=== PATIENT | male | born 1975 | race Caucasian/White ===

== ENCOUNTER 2019-06-06 20:30 | Emergency (ER) | payer MEDICAID ==
[2019-06-06] MEDS ORDERED: LIDOCAINE 1%/EPINEPHRINE INJ 20 ML VIAL INJ ONE (23:36)
[2019-06-06] MEDS ORDERED: SULFAMETHOXAZOLE/TRIMETHOPRIM 800-160 MG TABLET PO ONE (23:37)
[2019-06-06] MEDS ORDERED: CEPHALEXIN 500 MG CAPSULE PO ONE (23:37)
--- NOTE | 2019-06-06 23:39 | ER Document Report ---
ED General - General Chief Complaint: Abscess Stated Complaint: CYST ON BACK Time Seen by Provider: 06/06/19 23:34 TRAVEL OUTSIDE OF THE [place] IN LAST 30 DAYS: No - HPI Notes: 44-year-old male with a history of recurrent abscesses, denies any IVDA history, presents with right flank abscess. States it started draining a day ago, describes 2 to 3 days of increasing pain swelling and redness. Moderate in tensity, gradual onset, nonradiating. Throbbing and burning. No other modifying factors, no other associated symptoms, no other provocative or palliative factors. Past Medical History - Social History Smoking Status: Current Every Day Smoker Drug Abuse: None Family History: Reviewed & Not Pertinent - Medical History Medical History: Other - Recurrent abscesses Review of Systems - Review of Systems Notes: Review of systems as in the history of present illness, otherwise negative x 10 systems. Physical Exam - Vital signs Vitals: Temp Pulse Resp BP Pulse Ox 98.9 F 97 18 127/80 H 97 06/06/19 20:40 06/06/19 20:40 06/06/19 20:40 06/06/19 20:40 06/06/19 20:40 - Notes Notes: General: Well devloped, no acute distress. HEENT: Normocephalic, atraumatic. Pupils equal round reactive to light. Mucosa moist. No JVD. Chest: No trauma, normal excursion. Respiratory: Good air exchange, normal excursion. Cardiac: Regular rhythm Abdomen: Soft, benign. Nondistended. Back: No asymmetry or gross abnormality. Motor: Grossly normal power and tone. Neurologic: Alert, nonfocal. Vascular: Well perfused Skin: No petechiae or purpura Flank: There is approximately 5 x 5 cm area of induration with a central area of skin breakdown on the right flank near just superior to and posterior to the posterior iliac crest Course - Re-evaluation Re-evalutation: 06/06/19 23:41 -appearing nontoxic male with cutaneous abscess versus cellulitis and induration. Strong suspicion for abscess we will proceed empirically with incision and drainage. Given his associated erythema and cellulitis will treat with Keflex and Bactrim given his recurrent abscess history. 06/07/19 00:34 Abscess is incised and drained as described below, 4 cm incision made. Packed as described - Vital Signs Vital signs: Temp Pulse Resp BP Pulse Ox 98.9 F 97 18 127/80 H 97 06/06/19 20:40 06/06/19 20:40 06/06/19 20:40 06/06/19 20:40 06/06/19 20:40 Procedures - Incision and Drainage Right Back Type: Simple Anesthetic type: 1% Lidocaine Blade size: 11 I&D procedure: Chlorprep applied Incision Method: Incision made by scalpel Amount/type of drainage: Moderate amount of purulent drainage moderate amount of purulent drainage, Notes: 06/07/19 00:31 Wound is probed and packed without difficulty. Discharge - Discharge Clinical Impression: Abscess Condition: Stable Disposition: HOME, SELF-CARE Instructions: Abscess ([facility]) Additional Instructions: Remove packing in 3 to 4 days. Return immediately for any worsening Prescriptions: Cephalexin Monohydrate [Keflex 500 mg Capsule] 500 mg PO Q6H 7 Days #28 capsule Sulfamethoxazole/Trimethoprim [Bactrim Ds Tablet] 1 each PO Q12 7 Days #14 tablet Referrals: MICHELE ST MD [ACTIVE STAFF] - Follow up as needed
[2019-06-07 00:56] VITALS: BP 127/75
== END 2019-06-07 00:56 | disposition home or self-care (01) ==
LOC: ER 20:30
DX: L02.212 Cutaneous abscess of back [any part, except buttock and flank] (principal); F17.200 Nicotine dependence, unspecified, uncomplicated
CPT/HCPCS: 99283

== ENCOUNTER 2019-07-31 17:41 | Emergency (ER) | payer SELFPAY ==
--- NOTE | 2019-07-31 19:58 | RADIOLOGY REPORT (SQ) ---
EXAM DESCRIPTION: U/S EXTREMITY NONVASCULAR LTD COMPLETED DATE/TIME: 07/31/2019 7:33 pm REASON FOR STUDY: eval for abscess L knee Red, swollen and lump on the left knee x3 days. COMPARISON: None. TECHNIQUE: Dynamic and static grayscale images acquired of the localized site of clinical concern an d recorded on PACS. Additional selected color Doppler images recorded. SITE OF CONCERN: Area of swelling at the left knee. LIMITATIONS: None. FINDINGS: Ultrasound scanning of the area of concern at the left knee demonstrates diffuse soft tiss ue edema. No organized fluid collection was identified to suggest abscess formation. IMPRESSION: Soft tissue edema at the patient's area of concern at the left knee with no sonographic evidence for abscess formation. If clinical concern persists, contrast-enhanced CT or MRI can be obt ained for further evaluation. TECHNICAL DOCUMENTATION: JOB ID: [id number] [employer]- All Rights Reserved Reading location - IP/workstation name: [email or web address]
[2019-07-31 20:36] VITALS: BP 111/68
[2019-07-31] MEDS ORDERED: CEPHALEXIN 500 MG CAPSULE PO ONE (20:39)
[2019-07-31] MEDS ORDERED: DOXYCYCLINE HYCLATE 100 MG TABLET PO ONE (20:39)
--- NOTE | 2019-07-31 20:45 | ER Document Report ---
HPI - HPI Time Seen by Provider: 07/31/19 18:39 Pain Level: 5 Notes: Patient is a 44-year-old male presenting to the emergency department with concern for an abscess near his left knee. He states this started approximately 2 days ago as a small pimple and has now increased. He does report he has had abscesses in the past. He denies any fevers. He denies any history of MRSA. - CONSTITUTIONAL Constitutional: DENIES: Chills Past Medical History - General Information source: Patient - Social History Smoking Status: Current Every Day Smoker Chew tobacco use (# tins/day): No Frequency of alcohol use: None Drug Abuse: None Family History: Reviewed & Not Pertinent Patient has suicidal ideation: No Patient has homicidal ideation: No Pulmonary Medical History: Reports: Hx Asthma Renal/ Medical History: Denies: Hx Peritoneal Dialysis Past Surgical History: Reports: Hx Kidney (Renal Surgery) - stones Vertical Provider Document - CONSTITUTIONAL Notes: PHYSICAL EXAMINATION: GENERAL: Well-appearing, well-nourished and in no acute distress. HEAD: Atraumatic, normocephalic. EYES: Pupils equal round extraocular movements intact, conjunctiva are normal. ENT: Nares patent NECK: Normal range of motion LUNGS: No respiratory distress Musculoskeletal: Normal range of motion NEUROLOGICAL: Normal speech, normal gait. PSYCH: Normal mood, normal affect. SKIN: Area of erythema with induration noted over the left knee just superior to the kneecap. There is no area of fluctuance. There is a scabbed over area that appears as if it had been draining. - INFECTION CONTROL TRAVEL OUTSIDE OF THE [place] IN LAST 30 DAYS: No Course - Re-evaluation Re-evalutation: Knee x-ray is negative for any acute findings. There is no obvious fluid collection or area of fluctuance. ID roofed one area and did get a very small amount of drainage enough to obtain a culture. Patient will be started on appropriate antibiotics, he was encouraged to do warm soaks with Epsom salt. This may likely develop into a abscess that needs drainage, he was counseled on this and the need for return if symptoms worsen. - Vital Signs Vital signs: Temp Pulse Resp BP Pulse Ox 98.2 F 86 13 111/68 97 07/31/19 20:33 07/31/19 20:33 07/31/19 20:33 07/31/19 20:33 07/31/19 20:33 Discharge - Discharge Clinical Impression: Cellulitis Qualifiers: Site of cellulitis: unspecified site Qualified Code(s): L03.90 - Cellulitis, unspecified Condition: Stable Disposition: HOME, SELF-CARE Additional Instructions: Cellulitis You have an infection of your skin and underlying soft tissues called cellulitis. This is due to bacteria, which can enter through any break in the skin, or even through an irritated hair follicle. Untreated, cellulitis will usually worsen. Antibiotics are required. Usually, warm packs or warm soaks, and elevation of the infected area are recommended. You should start getting better within 24 to 36 hours. Most infections respond quickly to the right medication. Follow-up care is important, however, to check for abscess (boil) formation, unsuspected foreign body, or resistant infection. If you develop fever, chills, or if the area of infection is becoming rapidly more swollen or painful, call the doctor at once. Please take antibiotics exactly as prescribed, finish the entire course even if your symptoms resolve. I would like you to try to soak the area at least 4 times daily in warm water or warm packs. It would be especially helpful if you would put some Epsom salts in the water. Follow-up with your primary care provider in 2 days for wound recheck. If you are unable to follow-up with your primary care please return to the emergency department for wound recheck. Prescriptions: Cephalexin [Cephalexin 500 MG Tablet] 1 tab PO QID #28 tablet Doxycycline Hyclate 100 mg PO BID #14 capsule
== END 2019-07-31 21:07 | disposition home or self-care (01) ==
LOC: ER 17:41
DX: L03.90 Cellulitis, unspecified (principal); F17.200 Nicotine dependence, unspecified, uncomplicated
CPT/HCPCS: 76882; 87070; 87077; 87186; 87205; 99283

== ENCOUNTER 2019-08-02 17:57 | Emergency (ER) | payer SELFPAY ==
--- NOTE | 2019-08-02 19:04 | ER Document Report ---
ED Medical Screen (RME) - General Chief Complaint: Abscess Stated Complaint: FOLLOW UP, LEFT LEG SWELLING Time Seen by Provider: 08/02/19 18:56 Notes: Patient is a 44-year-old male who presents the emergency department with a chief complaint of left knee pain and redness. He was seen here in the emergency department and was sent home with Keflex and doxycycline. He states that the redness is still there and has not gone any better. He is able to drain some purulent fluid. Denies any fevers or body aches. States that it is harder to walk. Exam: Edema and erythema noted to left knee. 3 areas of purulent drainage. I have greeted and performed a rapid initial assessment of this patient. A comprehensive ED assessment and evaluation of the patient, analysis of test results and completion of medical decision making process will be conducted by an additional ED providers. TRAVEL OUTSIDE OF THE [place] IN LAST 30 DAYS: No - Related Data Allergies/Adverse Reactions: Sulfa (Sulfonamide Antibiotics) Allergy (Verified 08/02/19 18:45) morphine Adverse Reaction (Verified 08/02/19 18:45) Hyperactivity Past Medical History - Social History Chew tobacco use (# tins/day): No Frequency of alcohol use: None Drug Abuse: None Pulmonary Medical History: Reports: Hx Asthma Renal/ Medical History: Denies: Hx Peritoneal Dialysis Past Surgical History: Reports: Hx Kidney (Renal Surgery) - stones Physical Exam - Vital signs Vitals: Temp Pulse BP Pulse Ox 97.8 F 86 130/73 H 97 08/02/19 18:03 08/02/19 18:03 08/02/19 18:03 08/02/19 18:03 Course - Vital Signs Vital signs: Temp Pulse Resp BP Pulse Ox 97.8 F 86 130/73 H 97 08/02/19 18:03 08/02/19 18:03 08/02/19 18:03 08/02/19 18:03
[2019-08-02 19:41] LABS: ABSOLUTE BASOPHILS # (AUTO) 0.1 10^3/uL (0.0-0.2); ABSOLUTE EOSINOPHILS # (AUTO) 0.5 10^3/uL (0.0-0.6); ABSOLUTE LYMPHOCYTES (AUTO) 2.6 10^3/uL (0.5-4.7); ABSOLUTE MONOCYTES (AUTO) 1.3 10^3/uL (0.1-1.4); ABSOLUTE NEUT (AUTO) 5.7 10^3/uL (1.7-8.2); BASOPHILS % (AUTO) 1.2 % (0-2); EOSINOPHILS % (AUTO) 4.5 % (0-6); HEMATOCRIT 43.4 % (37.9-51.0); HEMOGLOBIN 14.7 g/dL (13.5-17.0); LYMPHOCYTES % (AUTO) 25.2 % (13-45); MEAN CORPUSCULAR HEMOGLOBIN 32.9 pg (27.0-33.4); MEAN CORPUSCULAR VOLUME 97 fl (80-97); MONOCYTES % (AUTO) 12.4 % (3-13); PLATELET COUNT 341 10^3/uL (150-450); RED BLOOD COUNT 4.48 10^6/uL (4.35-5.55); RED CELL DISTRIBUTION WIDTH 14.7 % (11.5-14.0); SEGMENTED NEUTROPHILS % (AUTO) 56.7 % (42-78); TOTAL CELLS COUNTED % (AUTO) 100 %; WHITE BLOOD COUNT 10.2 10^3/uL (4.0-10.5)
[2019-08-02 19:58] LABS: ANION GAP 6 (5-19); BLOOD UREA NITROGEN 23 mg/dL (7-20); CARBON DIOXIDE 29 mmol/L (22-30); CHLORIDE 105 mmol/L (98-107); GLUCOSE 91 mg/dL (75-110)
--- NOTE | 2019-08-02 20:56 | RADIOLOGY REPORT (SQ) ---
EXAM DESCRIPTION: CT LOWER EXTREMITY WITH IV CONTRAST COMPLETED DATE/TME: 08/02/2019 19:01 CLINICAL HISTORY: 44 years, Male, eval abcess COMPARISON: None. TECHNIQUE: Contrast enhanced CT of the left knee was performed after the uneventful administration of intravenous contrast. Coronal and sagittal reformations were created. Images stored on PACS. All CT scanners at this facility use dose modulation, iterative reconstruction, and/or weight based dosing when appropriate to reduce radiation dose to as low as reasonably achievable (ALARA). [facility]: Dose Right [facility]: CareDose [facility]: Dose Right [facility]: Teradose 4D [facility]: [email or web address] LIMITATIONS: None. FINDINGS: A benign bone island is noted about the anterior aspect of the distal femoral diaphysis. Otherwise, visualized osseous structures appear normal without acute fracture or dislocation. Diffuse inflammatory stranding is noted about the soft tissues along the anterior aspect of the distal thigh extending into the knee as well as into the lower leg. No underlying drainable fluid collections are clearly identified. Visualized musculature appears normal in attenuation. No inflammatory stranding is noted about the fascial planes of the musculature of either the distal thigh or lower leg. Likewise, vascular structures appear to opacify with contrast normally. IMPRESSION: Mild soft tissue swelling about the anterior aspect of the distal thigh extending into the knee and lower leg, raising the possibility of soft tissue cellulitis given the provided history. No underlying drainable fluid collection is clearly identified. No acute osseous anomaly. TECHNICAL DOCUMENTATION: Quality ID # [id number]: Final reports with documentation of one or more dose reduction techniques (e.g., Automated exposure control, adjustment of the mA and/or kV according to patient size, use of iterative reconstruction technique) copyright 2011 [employer]- All Rights Reserved
[2019-08-02] MEDS ORDERED: CEFTRIAXONE 1 GM/D5W RTU 1 GM/50 ML RTUPB IV ONE (21:02)
[2019-08-02] MEDS ORDERED: OXYCODONE-ACETAMINOPHEN 5-325 MG TABLET PO ONE (21:02)
[2019-08-02] MEDS ORDERED: DOXYCYCLINE HYCLATE 100 MG TABLET PO ONE ×2 (21:02→22:56)
[2019-08-02] MEDS ORDERED: LIDOCAINE 4% TRANSPARENT DRESSING 5 GM KIT TP ONE (21:03)
--- NOTE | 2019-08-02 21:17 | ER Document Report ---
ED Extremity Problem, Lower - General Chief Complaint: Abscess Stated Complaint: FOLLOW UP, LEFT LEG SWELLING Time Seen by Provider: 08/02/19 18:56 Notes: Patient is a 44-year-old male that comes to the emergency department for chief complaint of left knee pain, redness, swelling. He was seen 2 days ago, sent home with prescriptions for Keflex and doxycycline, however he admits that he never filled or took these prescriptions. He states that he feels this is gotten worse, this morning he squeezed the top of the knee and drained out some pus. He denies fever or chills. He denies diabetes or history of IV drug abuse. He states he has had abscesses in the past. He denies any other complaints. He denies any daily medications. TRAVEL OUTSIDE OF THE [place] IN LAST 30 DAYS: No - Related Data Allergies/Adverse Reactions: Sulfa (Sulfonamide Antibiotics) Allergy (Verified 08/02/19 18:45) morphine Adverse Reaction (Verified 08/02/19 18:45) Hyperactivity Past Medical History - General Information source: Patient - Social History Smoking Status: Current Every Day Smoker Chew tobacco use (# tins/day): No Frequency of alcohol use: None Drug Abuse: None Lives with: Family Family History: Reviewed & Not Pertinent Patient has suicidal ideation: No Patient has homicidal ideation: No Pulmonary Medical History: Reports: Hx Asthma Renal/ Medical History: Denies: Hx Peritoneal Dialysis Past Surgical History: Reports: Hx Kidney (Renal Surgery) - stones - Immunizations Immunizations up to date: Yes Hx Diphtheria, Pertussis, Tetanus Vaccination: Yes Review of Systems - Review of Systems Constitutional: No symptoms reported EENT: No symptoms reported Cardiovascular: No symptoms reported Respiratory: No symptoms reported Gastrointestinal: No symptoms reported Genitourinary: No symptoms reported Male Genitourinary: No symptoms reported Musculoskeletal: See HPI Skin: See HPI Hematologic/Lymphatic: No symptoms reported Neurological/Psychological: No symptoms reported Physical Exam - Vital signs Vitals: Temp Pulse BP Pulse Ox 97.8 F 86 130/73 H 97 08/02/19 18:03 08/02/19 18:03 08/02/19 18:03 08/02/19 18:03 - Notes Notes: GENERAL: Alert, interacts well. No acute distress. HEAD: Normocephalic, atraumatic. EYES: Pupils equal, round, and reactive to light. Extraocular movements intact. ENT: Oral mucosa moist, tongue midline. Oropharynx unremarkable. Airway patent. LUNGS: Clear to auscultation bilaterally, no wheezes, rales, or rhonchi. No respiratory distress. HEART: Regular rate and rhythm. No murmur ABDOMEN: Soft, non-tender. Non-distended. EXTREMITIES: Left knee with soft tissue swelling over the patella area with erythema and tenderness, borderline induration, no noted fluctuance, normal range of motion of the knee, normal hip, ankle, foot exam. Unremarkable extremities otherwise. BACK: no cervical, thoracic, lumbar midline tenderness. No saddle anesthesia, normal distal neurovascular exam. Moves all extremities in full range of motion. NEUROLOGICAL: Alert and oriented x3. Normal speech. Cranial nerves II through XII grossly intact. PSYCH: Normal affect, normal mood. SKIN: Warm, dry, normal turgor. No rashes or lesions noted. Course - Re-evaluation Re-evalutation: Patient with soft tissue swelling and obvious cellulitis over the left anterior knee, this was traced along the borders. There is some slight induration, there is tenderness, there is questionable fluctuance but not definitely. I did review the ultrasound and CAT scan from triage, neither of these show definite abscess, CAT scan shows cellulitis. CBC unremarkable, chemistry unremarkable. Patient is afebrile and well-appearing. Vital signs unremarkable. Patient still has full range of motion of the knee, I do not suspect septic arthritis. He denies IV drug abuse. I did evaluate the knee at bedside with the bedside ultrasound, this did appear to show a superficial pocket of pus, I discussed options with patient. After discussion decision was made to perform aspiration of the area with needle only as opposed to incision. I was actually able to aspirate purulent material easily out using a needle from the superficial area seen on ultrasound, this was about 1.5 cc of pus. No additional pus was obtained from squeezing of the area. No additional pockets noted on ultrasound at this time. Patient has been given Rocephin IV, doxycycline, he states he was having trouble filling the medication and that is why he did not get it yet, he states he is having trouble with his insurance and money generally. He states he should be L to get the money from a friend, in addition to this a block and case maker consult was placed after this discussion was made. I discussed strict return precautions with patient and significant other. They state understanding and agreement. - Vital Signs Vital signs: Temp Pulse Resp BP Pulse Ox 98.3 F 89 18 133/79 H 97 08/02/19 23:14 08/02/19 23:14 08/02/19 23:14 08/02/19 23:14 08/02/19 23:14 - Laboratory Result Diagrams: 08/02/19 19:13 08/02/19 19:13 Laboratory results interpreted by me: 08/02/19 08/02/19 19:13 19:13 RDW 14.7 H BUN 23 H Procedures - Incision and Drainage Left knee Type: Single Anesthetic type: Other - LMX Blade size: Other - 18-gauge needle I&D procedure: Shurclens applied, Sterile dressing applied Incision Method: Incision made with needle Amount/type of drainage: 1.5 cc of purulent drainage Notes: Ultrasound was used to locate what appeared to be a superficial pocket of pus just under the skin over the anterior knee in the center of the erythematous area. After LMX and cleansing an 18-gauge needle was placed just under the skin and into the pocket using ultrasound guidance, I was able to obtain hernando purulent drainage of 1.5 cc without even mixed blood. Afterwards the area was compressed but I could not get anything but small amount of blood through the opening. Repeat superficial ultrasound was performed and I did not see an additional pocket. Discharge - Discharge Clinical Impression: Cellulitis of left knee, Abscess Condition: Stable Disposition: HOME, SELF-CARE Additional Instructions: The imaging shows cellulitis. This is also consistent with your exam, however you also had an abscess that was drained today. Keep the area clean, elevate your leg, clean with soap and water, take antibiotics as prescribed to completion. Symptoms should resolve with time. Follow-up with primary care. We have a block and case maker consult placed, they will be contacting you shortly. Return if you worsen including spreading redness, increased pain, fever/chills, or any other concerning or worsening symptoms.
[2019-08-02] MEDS ORDERED: HYDROCODONE/ACETAMINOPHEN 5-325 MG (6 TAB/ER DISP) PO PRN (22:56)
[2019-08-02 23:15] VITALS: BP 133/79
== END 2019-08-02 23:14 | disposition home or self-care (01) ==
LOC: ER 17:57
DX: L03.116 Cellulitis of left lower limb (principal); L02.91 Cutaneous abscess, unspecified; M25.562 Pain in left knee; T36.1X6A Underdosing of cephalosporins and other beta-lactam antibiotics, initial encounter; T36.4X6A Underdosing of tetracyclines, initial encounter; Z91.120 Patient's intentional underdosing of medication regimen due to financial hardship; Z91.14 Patient's other noncompliance with medication regimen; F17.200 Nicotine dependence, unspecified, uncomplicated; Z88.2 Allergy status to sulfonamides; J45.909 Unspecified asthma, uncomplicated
CPT/HCPCS: 10160; 99282; 36415; 87040; 85025; 80048; 73701; J3490; J0696

== ENCOUNTER 2019-09-07 16:49 | Emergency (ER) | payer MEDICAID ==
--- NOTE | 2019-09-07 17:03 | ER Document Report ---
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 He did try to squeeze it without relief of symptoms. Complains of pain to his entire knee. Denies fever vomiting diarrhea. I have greeted and performed a rapid initial assessment of this patient. A comprehensive ED assessment and evaluation of the patient, analysis of test results and completion of the medical decision making process will be conducted by additional ED providers. Dictation of this chart was performed using voice recognition software; therefore, there may be some unintended grammatical errors. TRAVEL OUTSIDE OF THE [place] IN LAST 30 DAYS: No - Related Data Allergies/Adverse Reactions: Sulfa (Sulfonamide Antibiotics) Allergy (Verified 09/07/19 16:58) morphine Adverse Reaction (Verified 09/07/19 16:58) Hyperactivity Past Medical History - Social History Chew tobacco use (# tins/day): No Frequency of alcohol use: None Drug Abuse: None Pulmonary Medical History: Reports: Hx Asthma Renal/ Medical History: Denies: Hx Peritoneal Dialysis Past Surgical History: Reports: Hx Kidney (Renal Surgery) - stones - Immunizations Immunizations up to date: Yes Hx Diphtheria, Pertussis, Tetanus Vaccination: Yes Physical Exam - Vital signs Vitals: Temp Pulse Resp BP Pulse Ox 97.9 F 104 H 20 125/69 99 09/07/19 16:55 09/07/19 16:55 09/07/19 16:55 09/07/19 16:55 09/07/19 16:55 Course - Vital Signs Vital signs: Temp Pulse Resp BP Pulse Ox 97.9 F 104 H 20 125/69 99 09/07/19 16:55 09/07/19 16:55 09/07/19 16:55 09/07/19 16:55 09/07/19 16:55
[2019-09-07 17:31] LABS: ABSOLUTE BASOPHILS # (AUTO) 0.1 10^3/uL (0.0-0.2); ABSOLUTE EOSINOPHILS # (AUTO) 0.4 10^3/uL (0.0-0.6); ABSOLUTE MONOCYTES (AUTO) 1.6 10^3/uL (0.1-1.4); ABSOLUTE NEUT (AUTO) 9.5 10^3/uL (1.7-8.2); BASOPHILS % (AUTO) 0.8 % (0-2); EOSINOPHILS % (AUTO) 2.7 % (0-6); HEMATOCRIT 45.6 % (37.9-51.0); HEMOGLOBIN 15.6 g/dL (13.5-17.0); MEAN CORPUSCULAR HGB CONC 34.1 g/dL (32.0-36.0); MEAN CORPUSCULAR VOLUME 97 fl (80-97); MONOCYTES % (AUTO) 11.6 % (3-13); PLATELET COUNT 355 10^3/uL (150-450); RED BLOOD COUNT 4.71 10^6/uL (4.35-5.55); RED CELL DISTRIBUTION WIDTH 14.9 % (11.5-14.0); SEGMENTED NEUTROPHILS % (AUTO) 69.9 % (42-78); TOTAL CELLS COUNTED % (AUTO) 100 %; WHITE BLOOD COUNT 13.5 10^3/uL (4.0-10.5)
--- NOTE | 2019-09-07 17:34 | RADIOLOGY REPORT (SQ) ---
EXAM DESCRIPTION: KNEE RIGHT 4 VIEWS COMPLETED DATE/TIME: 09/07/2019 5:16 pm REASON FOR STUDY: knee abscess, pain COMPARISON: None. NUMBER OF VIEWS: Four views. TECHNIQUE: AP, lateral, and both oblique radiographic images acquired of the right knee. LIMITATIONS: None. FINDINGS: MINERALIZATION: Normal. BONES: No acute fracture or dislocation. No worrisome bone lesions. JOINT: No effusion. SOFT TISSUES: Soft tissue swelling above the right knee. OTHER: No other significant finding. IMPRESSION: Soft tissue swelling. No acute finding in the knee. No joint effusion. TECHNICAL DOCUMENTATION: JOB ID: [id number] [employer]- All Rights Reserved Reading location - IP/workstation name: [email or web address]
[2019-09-07 18:02] LABS: ALBUMIN 3.4 g/dL (3.5-5.0); ALKALINE PHOSPHATASE 54 U/L (38-126); ANION GAP 7 (5-19); ASPARTATE AMINO TRANSFERASE 41 U/L (17-59); BILIRUBIN,DIRECT 0.1 mg/dL (0.0-0.4); BILIRUBIN,TOTAL 0.4 mg/dL (0.2-1.3); BLOOD UREA NITROGEN 14 mg/dL (7-20); CALCIUM 9.2 mg/dL (8.4-10.2); CARBON DIOXIDE 26 mmol/L (22-30); CHLORIDE 105 mmol/L (98-107); GLUCOSE 100 mg/dL (75-110); POTASSIUM 4.4 mmol/L (3.6-5.0)
[2019-09-07] MEDS ORDERED: DIPH/PERTUSS(ACELL)/TETANUS VAC/PF 0.5 ML SYR (>=10YO) IM ONE (19:21)
[2019-09-07] MEDS ORDERED: LIDOCAINE 1%/EPINEPHRINE INJ 20 ML VIAL INJ ONE (19:22)
[2019-09-07] MEDS ORDERED: HYDROCODONE/ACETAMINOPHEN 5-325 MG TABLET PO ONE (19:26)
[2019-09-07] MEDS ORDERED: CLINDAMYCIN HCL 150 MG CAPSULE PO ONE (19:26)
--- NOTE | 2019-09-07 19:38 | ER Document Report ---
ED General - General Chief Complaint: Abscess Stated Complaint: POSSIBLE ABSCESS Time Seen by Provider: 09/07/19 16:59 Mode of Arrival: Ambulatory TRAVEL OUTSIDE OF THE [place] IN LAST 30 DAYS: No - Related Data Allergies/Adverse Reactions: Sulfa (Sulfonamide Antibiotics) Allergy (Verified 09/07/19 16:58) morphine Adverse Reaction (Verified 09/07/19 16:58) Hyperactivity Past Medical History - General Information source: Patient - Social History Smoking Status: Current Every Day Smoker Chew tobacco use (# tins/day): No Frequency of alcohol use: None Drug Abuse: None Family History: Reviewed & Not Pertinent Patient has suicidal ideation: No Patient has homicidal ideation: No Pulmonary Medical History: Reports: Hx Asthma Renal/ Medical History: Denies: Hx Peritoneal Dialysis Past Surgical History: Reports: Hx Kidney (Renal Surgery) - stones - Immunizations Immunizations up to date: Yes Hx Diphtheria, Pertussis, Tetanus Vaccination: Yes Physical Exam - Vital signs Vitals: Temp Pulse Resp BP Pulse Ox 97.9 F 104 H 20 125/69 99 09/07/19 16:55 09/07/19 16:55 09/07/19 16:55 09/07/19 16:55 09/07/19 16:55 - Notes Notes: Patient presents emergency department with a possible abscess to his right knee. Says this started dialysis small bump and he thought he might of gotten bit by something. Squeezed and got a small amount of pus out. Had any drainage since then. He has increasing redness and swelling over the last 2 to 3 days. Not had any fevers associated with this. [place] any direct trauma to the area. He has not had any fevers or night sweats. No recent dental work or surgery. Had multiple abscesses in the past and his last one was mid-July denies any history of IV drug abuse and works as a restaurant worker His medical history is unremarkable. Social history smokes but does not drink. Tetanus status is unknown Review of systems as in HPI Allergies are sulfa and morphine he has had Vicodin in the past PHYSICIAN EXAM -vital signs are noted triage note and note from triage reviewed GENERAL: Well-appearing, well-nourished and in _no acute distress HEAD: Atraumatic, normocephalic. EYES: Pupils equal round and reactive to light, c conjunctiva are clear LUNGS: Breath sounds clear to auscultation bilaterally and equal. No wheezes rales or rhonchi. HEART: Regular rate and rhythm without murmurs of 90 is the heart rate ABDOMEN: Soft, nontender, normoactive bowel sounds. EXTREMITIES: Right knee has a small indurated pustular lesion with minimal redness surrounding it over the patella. Patella itself is nontender is no effusion. There is no tenderness along the medial lateral joint line and full range of motion of the knee with vascular status in his foot Course - Re-evaluation Re-evalutation: 09/07/19 19:37 ED patient was given 1 dose of clindamycin and [facility] Medical decision making patient presents with recurrent skin abscess that is probably colonized his last culture grew out MRSA. Plan at this point we will discharge him home is advised to remove the packing in 24 hours. Clean wound daily with peroxide prescription for Ultram and clindamycin we will have him start bathing daily with Hibiclens for 1 week and then weekly and have a follow- up in the clinic in 1 week Labs reviewed white count minimally elevated consistent with his infection while he is nontoxic - Vital Signs Vital signs: Temp Pulse Resp BP Pulse Ox 97.9 F 104 H 20 125/69 99 09/07/19 16:55 09/07/19 16:55 09/07/19 16:55 09/07/19 16:55 09/07/19 16:55 - Laboratory Result Diagrams: 09/07/19 17:10 09/07/19 17:10 Laboratory results interpreted by me: 09/07/19 09/07/19 17:10 17:10 WBC 13.5 H RDW 14.9 H Absolute Neuts (auto) 9.5 H Absolute Monos (auto) 1.6 H Total Protein 6.0 L Albumin 3.4 L - Diagnostic Test Radiology reviewed: Reports reviewed Procedures - Incision and Drainage Right Knee Type: Complex Anesthetic type: 1% Lidocaine w/epi Blade size: 11 I&D procedure: Betadine prep applied Incision Method: Incision made by scalpel Amount/type of drainage: Minimal Notes: 09/07/19 19:36 Loculations were broken up. Wound was irrigated with normal saline Betadine solution and loosely packed with iodoform gauze gauze dressing was applied patient tolerated procedure well 09/07/19 19:36 Discharge - Discharge Clinical Impression: Abscess Cellulitis Qualifiers: Site of cellulitis: extremity Laterality: right Condition: Good Disposition: HOME, SELF-CARE Instructions: Abscess ([facility]), MRSA Cellulitis ([facility]), Post Incision and Drainage Additional Instructions: Please review the discharge instructions, they will tell you about your disea se/injury and what you need to return to the ED for Return to the ED if you feel worse or can follow-up with your family doctor Remove the packing 24 hours and clean wound 2 times a day with peroxide on a Q- tip You need to buy Hibiclens soap and shower this daily for 7 days and then 2 times a week Follow-up in the clinic in 1 week The pain medications may cause drowsiness. Be careful if you are using crutches. Do not drive or operate machinery. Do not take Tylenol with the pain medication Return for fever greater than 101 or if the redness moves up your leg Prescriptions: Clindamycin HCl [Cleocin 150 mg Capsule] 300 mg PO ASDIR PRN #30 capsule PRN Reason:
[2019-09-07] MEDS ORDERED: HYDROCODONE/ACETAMINOPHEN 5-325 MG (6 TAB/ER DISP) PO PRN (19:44)
[2019-09-07 20:41] VITALS: BP 112/65
== END 2019-09-07 20:48 | disposition home or self-care (01) ==
LOC: ER 16:49
DX: L02.415 Cutaneous abscess of right lower limb (principal); F17.200 Nicotine dependence, unspecified, uncomplicated; Z86.14 Personal history of Methicillin resistant Staphylococcus aureus infection; Z88.6 Allergy status to analgesic agent; Z88.2 Allergy status to sulfonamides; Z23 Encounter for immunization; Z87.442 Personal history of urinary calculi
CPT/HCPCS: 36415; 87040; 85025; 87077; 80053; 73564; 90715; 10061; J3490 ×2